=== PATIENT | male | born 1950 | race Caucasian/White ===

== ENCOUNTER 2016-10-25 12:47 | Day surgery (SDC) | payer BC ==
[2016-10-22 13:27] LABS: BASOPHILS 0.2 %; BASOPHILS ABSOLUTE 0.01 10/3/uL (0.0-0.16); EOSINOPHILS 4.7 %; EOSINOPHILS ABSOLUTE 0.24 10/3/uL (0.0-0.53); HEMATOCRIT 44.6 % (40.0-51.0); HEMOGLOBIN 15.4 g/dL (13.6-17.8); IMMATURE GRANULOCYTES 0.2 %; IMMATURE GRANULOCYTES ABSOLUTE 0.01 10/3/uL (0.0-0.11); LYMPHOCYTES 35.8 %; LYMPHOCYTES ABSOLUTE 1.82 10/3/uL (0.67-4.30); MEAN CORPUS HGB CONC 34.5 g/dL (32.0-36.0); MEAN CORPUSCULAR HEMOGLOB 31.8 pg (26.0-34.0); MEAN CORPUSCULAR VOLUME 92.1 fL (80-100); MEAN PLATELET VOLUME 11.3 fL (9.2-13.0); MONOCYTES 7.1 %; MONOCYTES ABSOLUTE 0.36 10/3/uL (0.21-1.20); NEUTROPHILS ABSOLUTE 2.64 10/3/uL (2.02-8.40); PLATELET COUNT 162 10/3/uL (150-400); RBC DISTRIBUTION WIDTH 13.7 % (12.0-16.0); RED CELL COUNT 4.84 10/6/uL (4.7-6.1); WHITE BLOOD CELLS 5.1 10/3/uL (4.5-10.5)
[2016-10-22 13:28] LABS: MANUAL DIFF NO %
[2016-10-22 13:37] LABS: A/G RATIO 1.3 (0.7-1.9); ALBUMIN 3.9 G/DL (3.5-5.0); ALKALINE PHOSPHATASE 98 U/L (45-117); CALCIUM, SERUM 9.1 MG/DL (8.5-10.4); CHLORIDE, SERUM 106 MMOL/L (96-112); CO2 (CARBON DIOXIDE) 29 MMOL/L (24-34); CREATININE 1.11 MG/DL (0.70-1.30); GFR AFRICAN AMERICAN 79 ML/MIN (>=60); GFR NON AFRICAN AMERICAN 68 ML/MIN (>=60); GLOBULIN 3.1 G/DL (2.5-4.1); GLUCOSE, SERUM 80 MG/DL (60-99); POTASSIUM, SERUM 4.5 MMOL/L (3.5-5.3); SGOT(AST) 33 U/L (5-40); SGPT(ALT) 39 U/L (5-65); SODIUM, SERUM 143 MMOL/L (135-148); TOTAL BILIRUBIN 0.6 MG/DL (0-1.2)
[2016-10-22 13:38] LABS: BUN (BLOOD UREA NITROGEN) 23 MG/DL (6-23)
--- NOTE | ~2016-10-25 | OP ---
Record Of Operation [facility] [address] [place]. [address] NAME: PEPITO PASTOR : 46 STATUS : [facility]#: [id number] AGE: 66 ADM/REG DATE : 10/25/16 MR#: [id number] REPORT SERV DATE: 10/25/16 DICTATED BY: JOSE MANUEL SERNA DATE: 10/25/16 REPORT STATUS : Draft TRANSCRIBED BY: MODL DATE: 10/25/16 DATE OF PROCEDURE: 10/25/2016 POSTOPERATIVE DIAGNOSIS: Elevated PSA. POSTPROCEDURE DIAGNOSIS: Elevated PSA. OPERATIVE PROCEDURE: Ultrasound-guided needle biopsies of the prostate. ANESTHESIA: Monitored anesthesia care (propofol). ESTIMATED BLOOD LOSS: 5-10 mL. SPECIMENS: Prostate x18, 3 right base, 3 right mid gland, 3 right apex, 3 left base, 3 left mid gland, 3 left apex. COMPLICATIONS: None. IMMEDIATE POSTOP: Satisfactory. DESCRIPTION OF PROCEDURE: The patient was brought in the cysto suite, placed in lateral decubitus position given intravenous propofol by the Anesthesia Department. Transrectal ultrasound probe containing needle biopsy guide was passed by the bottle house quality control technician. The gland was carefully inspected in both transverse and longitudinal planes. There was significant calcification throughout the gland, but no worrisome lesions were noted. The gland was then measured; dimensions 3.94 cm length, 2.97 cm height, 4.50 cm width, volume 27.6 mL. Then, using a disposable biopsy gun through the ultrasound probe under ultrasound guidance, biopsies were obtained in the above-mentioned sites. The patient tolerated the procedure well. At close of procedure, an absorbable Gelfoam rectal packing was passed to help tamponade the biopsy sites, and the patient was then awakened and sent to recovery in satisfactory condition. /BORIS Jose Manuel Serna M.D. / [id number] CC: Frank Woodward M.D.
[~2016-10-25 12:47] MED LIST: ASA5GR PO; COQ-10200 MG PO; COREG3 PO; MEVACOR PO; MULTIPLE VIT PO; PLAVIX PO; PRIN2.5 PO; Z300 PO; ZANTAC150 MG PO; ZOCOR10 PO
== END 2016-10-25 18:30 | disposition home or self-care (01) ==
LOC: SDC 12:47
PROVIDERS: Urology
PROC: 0VB03ZX Excision of Prostate, Percutaneous Approach, Diagnostic (ICD-10-PCS; principal; 2016-10-25 15:00)
DX: N41.1 Chronic prostatitis (principal); I10 Essential (primary) hypertension; E78.00 Pure hypercholesterolemia, unspecified; K21.9 Gastro-esophageal reflux disease without esophagitis; Z98.890 Other specified postprocedural states
CPT/HCPCS: 36415; 71020; 76872; 76942; 80053; 85025; 88305; 93005; J2250; J2405; J3010